=== PATIENT | male | born 1955 | race Caucasian/White ===

== ENCOUNTER → 2016-10-04 | Day surgery (SDC) | payer BC ==
[~2016-10-04] VITALS: Ht 177.8 cm; Wt 98.5 kg
[~2016-10-04] MED LIST: COZAAR50 MG PO
== END ==
LOC: GPOC 09-27 08:00 → GEND 06:22 → GPOC 08:00
PROC: 0DBK8ZX Excision of Ascending Colon, Via Natural or Artificial Opening Endoscopic, Diagnostic (ICD-10-PCS; principal; 2016-10-04)
DX: Z12.11 Encounter for screening for malignant neoplasm of colon (principal); D12.2 Benign neoplasm of ascending colon; K57.30 Diverticulosis of large intestine without perforation or abscess without bleeding; K64.8 Other hemorrhoids; I10 Essential (primary) hypertension; E78.00 Pure hypercholesterolemia, unspecified
CPT/HCPCS: J2001; J7030